=== PATIENT | female | born 1995 | race African-American/Black ===

== ENCOUNTER 2018-06-28 04:38 | Emergency (ER) | payer MEDICARE ==
[~2018-06-28] VITALS: Ht 162.6 cm; Wt 96.6 kg
[2018-06-28] MEDS ORDERED: KETOROLAC TROMETHAMINE 30 MG/ML VIAL IV STA (05:12)
[2018-06-28] MEDS ORDERED: ACETAMINOPHEN 325 MG TAB PO ONE (05:15)
[2018-06-28] MEDS ORDERED: CEFTRIAXONE SOD 1 GM VIAL IV ONE (06:00)
--- NOTE | 2018-06-28 09:11 | Diagnostic Imaging Report ---
PROCEDURE:US PELVIS - HOPD COMPARISON:None. INDICATIONS:Not provided. FINDINGS: Uterus: Measures 7.1 x 3.7 x 5.1 cm. The endometrial stripe measures 0.6 cm. Appearance is unremarkable. No evidence of fibroid. The uterine position is anteverted. Right ovary: Measures 3.2 x 2.4 x 2.1 cm. Appearance is normal. There is arterial flow demonstrated within the ovary. Left ovary: Measures 2.3 x 2.6 x 3.3 cm. Appearance is normal. There is arterial flow demonstrated within the ovary. Free fluid: None. CONCLUSION: Unremarkable pelvic ultrasound. Dictated by: ALBERT WINSTON M.D. on 06/28/2018 at 7:46 Electronically approved by: ALBERT WINSTON M.D. on 06/28/2018 at 7:46
== END 2018-06-28 09:36 | disposition home or self-care (01) ==
LOC: FSED 04:38
DX: R10.30 Lower abdominal pain, unspecified (principal); N30.91 Cystitis, unspecified with hematuria
CPT/HCPCS: 76856; 80053; 81003; 81025; 85025; 87086; 99284; J0696; J1885